=== PATIENT | male | born 1990 | race Caucasian/White ===

== ENCOUNTER 2017-01-14 16:06 | Emergency (ER) | payer OTHER ==
[~2017-01-14] VITALS: Ht 177.8 cm; Wt 75.0 kg
[2017-01-14 16:09] VITALS: Ht 177.8 cm; Wt 75.0 kg
[2017-01-14] MEDS ORDERED: ONDANSETRON (ODT) 4 MG TAB ODT STA (17:15)
[2017-01-14] MEDS ORDERED: CEFTRIAXONE 250 MG INJ IM ONE (17:30)
[2017-01-14] MEDS ORDERED: FAMOTIDINE 20 MG TAB PO ONE (17:30)
[2017-01-14] MEDS ORDERED: LIDOCAINE/MYLANTA 40 ML BTL PO ONE (17:30)
[2017-01-14] MEDS ORDERED: AZITHROMYCIN 250 MG TAB PO ONE (17:30)
[2017-01-14 17:58] LABS: ADD UMIC YES; URINE BILIRUBIN (Dip) 1+ (NEGATIVE); URINE BLOOD (Dip) NEGATIVE (NEGATIVE); URINE COLOR YELLOW (YELLOW); URINE GLUCOSE (Dip) NEGATIVE (NEGATIVE); URINE KETONES (Dip) 40 (NEGATIVE); URINE LEUKOCYTE ESTERASE (Dip) 1+ (NEGATIVE); URINE NITRITE (Dip) NEGATIVE (NEGATIVE); URINE TOTAL PROTEIN (Dip) TRACE (NEGATIVE); URINE UROBILINOGEN (Dip) 1.0 E.U./dL (0.1-1.0)
[2017-01-14 18:21] LABS: ICTOTEST NEGATIVE (NEGATIVE)
[2017-01-14 18:22] LABS: URINE RBCS NONE SEEN /HPF (0)
[2017-01-14] MEDS ORDERED: FAMO-18 PO (18:22)
[2017-01-14] MEDS ORDERED: CIPR500T4 PO (18:22)
[2017-01-14 18:23] LABS: MUCUS,URINE FEW
--- NOTE | 2017-01-14 18:43 | ERD ---
ER Documentation Chief Complaint Date/Time DATE: 01/14/17 TIME: 18:39 Chief Complaint AP X 4 DAYS HPI This is a 26-year-old male that presents to the ER with epigastric pain since Thursday. Patient states that pain is burning in quality it is nonradiating. He has not tried anything for the pain. He denies any vomiting or diarrhea. He denies any fevers or chills. Patient states that he also has symptoms of an STD complaining of penile discharge that is yellow in color. He denies any urinary frequency or dysuria. Patient did have unprotected sex a few days ago. Patient denies any testicular pain redness or swelling. He denies any chest pain or shortness of breath. ROS 12 point review of systems was done, all negative except per HPI. Medications Home Meds Active Scripts Famotidine* (Pepcid*) 20 Mg Tablet, 20 MG PO BID for 14 Days, TAB Prov:AMY ABREU C 01/14/17 Ciprofloxacin Hcl* (Ciprofloxacin Hcl*) 500 Mg Tablet, 500 MG PO BID for 10 Days , TAB Prov:AMY ABREU 01/14/17 Physical Exam Vitals Vital Signs Date Time Temp Pulse Resp B/P Pulse Ox O2 Delivery O2 Flow Rate FiO2 01/14/17 16:09 97.8 102 20 132/79 99 Physical Exam GENERAL: The patient is well developed and appropriate for usual state of health , in no apparent distress. HEENT: Atraumatic. CHEST: Clear to auscultation bilaterally. There are no rales, wheezes or rhonchi. HEART: Regular rate and rhythm. No murmurs, clicks, rubs or gallops. ABDOMEN: Soft, nontender and nondistended. Good bowel sounds. No rebound or guarding. No gross peritonitis. No gross organomegaly or masses. No Arriaza sign or McBurney point tenderness. BACK: No midline or flank tenderness. : yellow penile discharge SKIN: The skin is warm and dry. Results 24 hrs Laboratory Tests Test 01/14/17 17:12 Urine Color YELLOW Urine Clarity CLEAR Urine pH 6.0 Urine Specific [place] 1.025 Urine Ketones 40 Urine Nitrite NEGATIVE Urine Bilirubin 1+ Urine Ictotest NEGATIVE Urine Urobilinogen 1.0 E.U./dL Urine Leukocyte Esterase 1+ Urine Microscopic RBC NONE SEEN/HPF Urine Microscopic WBC 2-5/HPF Urine Calcium Oxalate Crystals FEW Urine Mucus FEW Urine Hemoglobin NEGATIVE Urine Glucose NEGATIVE% Urine Total Protein TRACE Current Medications Medications (Trade) Dose Ordered Sig/Karlee Route PRN Reason Start Time Stop Time Status Last Admin Dose Admin Miscellaneous Medication (Gi Cocktail (2)) 40 ml ONCE ONCE PO 01/14/17 17:30 01/14/17 17:31 DC 01/14/17 17:42 Famotidine (Pepcid) 20 mg ONCE ONCE PO 01/14/17 17:30 01/14/17 17:31 DC 01/14/17 17:42 Ondansetron HCl (Zofran Odt) 4 mg ONCE STAT ODT 01/14/17 17:15 01/14/17 17:18 DC 01/14/17 17:42 Ceftriaxone Sodium (Rocephin) 250 mg ONCE ONCE IM 01/14/17 17:30 01/14/17 17:31 DC 01/14/17 17:42 Azithromycin (Zithromax) 1,000 mg ONCE ONCE PO 01/14/17 17:30 01/14/17 17:31 DC 01/14/17 17:42 Procedures/MDM Differential Diagnosis: GERD, gastritis, peptic ulcer disease, pancreatitis, cholecystitis, choledocholithiasis, biliary colic, cholangitis, [id number] , ACS/NC, Pnuemonia , diaphragmatic hernia. This is a 26-year-old male presents to the ER with multiple complaints. Patient has epigastric pain, likely GERD. He did not have any right upper quadrant tenderness to suggest gallbladder disease. Patient is afebrile and well-appearing I do not believe that labs or imaging is necessary at this time. Patient's pain is completely controlled in the ER with a GI cocktail, Zofran and awaiting. He was treated for chlamydia and gonorrhea with Rocephin and azithromycin, he did not have any complications. His urine was examined and he did have a urinary tract infection. He will be sent home with [facility]. Suspicion for pyelonephritis is low, patient does not have any flank tenderness and is afebrile. Patient needs to follow-up with his primary care doctor within 1-2 days return to ER sooner if symptoms worsen. My medical decision making shared with the patient he understands and agrees with plan. Departure Diagnosis: Primary Impression: UTI (urinary tract infection) Urinary tract infection type: acute cystitis Hematuria presence: without hematuria Qualified Code: N30.00 - Acute cystitis without hematuria Additional Impression: Epigastric pain Condition: Stable Patient Instructions: Understanding Urinary Tract Infections (UTIs), Epigastric Pain (Uncertain Cause) Additional Instructions: Call your primary care doctor TOMORROW for an appointment during the next 1-2 days.See the doctor sooner or return here if your condition worsens before your appointment time. AMY ABREU Jan 14, 2017 18:43
== END 2017-01-14 18:56 | disposition home or self-care (01) ==
LOC: FTE 16:06
DX: N39.0 Urinary tract infection, site not specified (principal)
CPT/HCPCS: 81001; 87591; J0696; Z7610; 96372

== ENCOUNTER 2017-02-12 21:31 | Emergency (ER) | payer OTHER ==
[~2017-02-12] VITALS: Ht 177.8 cm; Wt 69.5 kg
[~2017-02-12 21:31] MED LIST: CIPR500T4 PO; FAMO-96 PO
[2017-02-12 21:35] VITALS: Ht 177.8 cm; Wt 69.5 kg
[2017-02-12] MEDS ORDERED: POLY17PO6 PO (21:57)
[2017-02-12] MEDS ORDERED: DOCU-144 PO (21:57)
[2017-02-12] MEDS ORDERED: HYDR25SU23 PR (21:57)
--- NOTE | 2017-02-12 23:11 | ERD ---
ER Documentation Chief Complaint Date/Time DATE: 02/12/17 TIME: 23:07 Chief Complaint rectal bleeding x 5 days HPI This is a 26-year-old male presenting to the emergency department complaining of rectal bleeding for the past 5 days. Patient states that he has been straining and having difficulty with bowel movements the past couple days. Patient stated the blood is when he wipes. He denies any abdominal pain. Denies taking any medications for this. Denies nausea, vomiting, diarrhea, fevers ROS All systems reviewed and are negative except as per history of present illness. Medications Home Meds Active Scripts Polyethylene Glycol* (Miralax*) 17 Gm Powd.pack, 17 GM PO DAILY, #7 Prov:SALIMA LYNN PA-C 02/12/17 Docusate Sodium* (Colace*) 100 Mg Capsule, 100 MG PO TID, #30 CAP Prov:SALIMA LYNN PA-C 02/12/17 Hydrocortisone Acetate (Anusol-Hc) 25 Mg Supp.rect, 1 SUPP MS BID Y for HEMORROID PAIN/ITCHING, #20 SUPP.RECT Prov:SALIMA LYNN PA-C 02/12/17 Famotidine* (Pepcid*) 20 Mg Tablet, 20 MG PO BID for 14 Days, TAB Prov:AMY ABREU 01/14/17 Ciprofloxacin Hcl* (Ciprofloxacin Hcl*) 500 Mg Tablet, 500 MG PO BID for 10 Days , TAB Prov:AMY ABREU 01/14/17 Allergies Allergies: Coded Allergies: No Known Drug Allergies (Verified Allergy, Unknown, 02/12/17) PMhx/Soc Medical and Surgical Hx: pt denies Medical Hx, pt denies Surgical Hx Hx Alcohol Use: Yes (social) Hx Substance Use: Yes (marijuana) Hx Tobacco Use: Yes Smoking Status: Former smoker Physical Exam Vitals Vital Signs Date Time Temp Pulse Resp B/P Pulse Ox O2 Delivery O2 Flow Rate FiO2 02/12/17 21:35 98.6 98 20 114/69 99 Physical Exam GENERAL: well-developed/well-nourished, in no apparent distress, non-toxic appearing HENT: NC/AT, moist mucous membranes EYES: Conjunctiva normal NECK: Supple, no lymphadenopathy PULM: CTA bilaterally, no rales, rhonchi, or wheezing heard CV: Normal S1S2, RRR, good capillary refill GI: Soft, non-distended, non-tender to palpation Normal bowel sounds, no masses or organomegaly felt on exam No gross peritonitis, no bruits Negative Rovsing, negative Arriaza, negative McBurney's point, Negative CVAT RECTUM: small hemorrhoid BACK: No masses EXT: No clubbing, cyanosis, or edema NEURO: Alert and Orientated SKIN: Intact, normal turgor PSYCH: Normal mood and mentation Procedures/MDM This is a 26-year-old male presenting to the emergency department with constipation and rectal bleeding for the past 5 days, this is likely due to a hemorrhoid versus anal fissure. On examination there was evidence of a small hemorrhoid that was nonthrombosed. Patient appears well, nontoxic. He is hematuria stable to be discharged home to follow-up with the primary care physician for further evaluation management. Prescription for Anusol, Colace and MiraLAX provided. I discussed with him to return to the ER for any worsening symptoms. He understands and agrees with this plan Departure Diagnosis: Primary Impression: Hemorrhoids Additional Impression: Rectal hemorrhage Condition: Stable Patient Instructions: Treating Constipation, Evaluating and Treating Rectal Bleeding, Understanding Rectal Bleeding, Hemorrhoids, Rectal Bleed, Stable Additional Instructions: FOLLOW UP WITH YOUR PRIMARY CARE PHYSICIAN TOMORROW.Return to this facility if you are not improving as expected. Return to this facility if you are not improving as expected. Take all medicines as directed. SALIMA LYNN PA-C Feb 12, 2017 23:11
== END 2017-02-12 22:35 | disposition home or self-care (01) ==
LOC: FTE 21:31
DX: K64.8 Other hemorrhoids (principal)
CPT/HCPCS: 99284

== ENCOUNTER 2017-02-26 21:16 | Emergency (ER) | payer OTHER ==
[~2017-02-26] VITALS: Ht 177.8 cm; Wt 68.5 kg
[~2017-02-26 21:16] MED LIST changes: +DOCU-144 PO; +HYDR25SU23 PR; +POLY17PO6 PO
[2017-02-26 21:52] VITALS: Ht 177.8 cm; Wt 68.5 kg
--- NOTE | 2017-02-27 00:24 | ERD ---
ER Documentation Chief Complaint Date/Time DATE: 02/27/17 TIME: 00:18 Chief Complaint states rectal bleed/abdominal pain x 2 weeks, was here before for same HPI This 26-year-old male patient presents to emergency department with complaint of rectal bleeding since March 02. Patient reports that he has been seen in treated in emergency department approximately 2 weeks ago diagnosed with hemorrhoids, patient states he was given a prescription for MiraLAX and "hemorrhoid medicine" which she did not use. Patient states that he had lost the prescription, symptoms improved but now they have returned. Patient report blood noted in stool, blood on toilet paper, intermittently, patient denies shortness of breath dizziness or abdominal pain. Denies any previous history of hemorrhoids, Crohn's disease, or gastritis. Patient denies any anal trauma or sodomy. Patient denies any alteration in activities of daily living ROS All systems reviewed and are negative except as per history of present illness. Medications Home Meds Active Scripts Polyethylene Glycol* (Miralax*) 17 Gm Powd.pack, 17 GM PO DAILY, #7 Prov:SALIMA LYNN PA-C 02/12/17 Docusate Sodium* (Colace*) 100 Mg Capsule, 100 MG PO TID, #30 CAP Prov:SALIMA LYNN PA-C 02/12/17 Hydrocortisone Acetate (Anusol-Hc) 25 Mg Supp.rect, 1 SUPP PA BID Y for HEMORROID PAIN/ITCHING, #20 SUPP.RECT Prov:SALIMA LYNN PA-C 02/12/17 Famotidine* (Pepcid*) 20 Mg Tablet, 20 MG PO BID for 14 Days, TAB Prov:LOIS,AMY C 01/14/17 Ciprofloxacin Hcl* (Ciprofloxacin Hcl*) 500 Mg Tablet, 500 MG PO BID for 10 Days , TAB Prov:LOISAMY MICHAEL C 01/14/17 Allergies Allergies: Coded Allergies: No Known Drug Allergies (Verified Allergy, Unknown, 02/26/17) PMhx/Soc Medical and Surgical Hx: pt denies Surgical Hx History of Surgery: No Anesthesia Reaction: No Hx Respiratory Disorders: No Hx Cardiac Disorders: No Hx Psychiatric Problems: No Hx Miscellaneous Medical Probl: Yes (hemmorhoids, HIV (+)) Hx Alcohol Use: Yes (social) Hx Substance Use: No Hx Tobacco Use: No Smoking Status: Never smoker Physical Exam Vitals Vital Signs Date Time Temp Pulse Resp B/P Pulse Ox O2 Delivery O2 Flow Rate FiO2 02/26/17 21:52 97.5 82 20 168/68 99 Physical Exam Const: Well-appearing, well-nourished, no acute distress Head: Atraumatic Eyes: Normal Conjunctiva PERRLA, EOMI ENT: Normal External Ears, Nose and Mouth. Mucous membranes moist Neck: Resp: Respirations even and unlabored, no respiratory distress Cardio: Abd: Soft, non tender, non distended. No Arriaza point tenderness, no McBurney's point tenderness, no CVA tenderness Rectal: Normal tone, No mass, Positive control Stool: Brown Guaiac: Negative Skin: Back: Ext: Neur: Awake and alert Psych: Normal Mood and Affect Results 24 hrs Laboratory Tests Test 02/26/17 23:19 Stool Occult Blood NEGATIVE Procedures/MDM This 26-year-old male patient presents to emergency department evaluation of rectal bleeding. History of recent diagnosis of hemorrhoids done here in the emergency department treated with MiraLAX and rectal hydrocortisone patient reports he did not start medication symptoms improved. Patient denies constipation or rectal straining, low suspicion for rectal trauma, GI bleed, gastric ulcer, diverticulitis. Stool for occult blood negative. Patient will be discharged home with [facility]. Follow-up with primary care physician for reevaluation. Return to emergency department for bleeding not improving with treatment, pain, nausea, vomiting. I feel the patient is stable for discharge at this time. I have discussed results, examination findings, the treatment plan with the patient and family present prior to discharge. Indications for emergent reevaluation, side effects of medication were also discussed. All questions were answered. Patient verbalizes understanding and agrees with plan of care. Departure Diagnosis: Primary Impression: Rectal bleeding Condition: Good Patient Instructions: Understanding Rectal Bleeding Additional Instructions: Thank you for for coming to [facility] for your care today. Please ask your nurse or provider if you have questions about your care today and do not leave until all your questions have been answered. Please use any medications given as directed and follow-up with your doctor (or the doctor you were referred to) in the next 2-3 days. If you do not have a primary care doctor you may follow up at the [facility] (listed below). You may also use motrin and tylenol as needed for fever and/or pain unless instructed otherwise by your provider or nurse. Indications for more urgent follow-up have been discussed, but you may return to the Emergency Department at ANY time for any worrisome or worsening symptoms. If you have abdominal pain, please know that no test or exam you received is perfect and you should follow up within 8 hours for continued pain. If you had any imaging studies today, such as an X-Ray or CT Scan, these studies will be reviewed later by a radiologist. You will be called if there are important findings that were not identified today, so make sure the contact information you provided at registration is correct. If you received any narcotic pain control medicine today, such as Vicodin, Morphine or Dilaudid, your coordination and judgment may be affected for a number of hours. Please do not drive or operate heavy machinery, and you may want someone to assist you at home. If you were given a prescription for narcotic medication, be aware that it is very addictive- use sparingly and only if necessary. HARRISON LLAMAS Feb 27, 2017 00:24
[2017-02-27] MEDS ORDERED: POLY17PO6 PO (00:28)
[2017-02-27] MEDS ORDERED: HYDR25SU23 PR (00:29)
[2017-02-27 00:38] VITALS: BP 150/63; PULSE 87; RESP 20; TEMP 97.5
== END 2017-02-27 00:41 | disposition home or self-care (01) ==
LOC: FTE 21:16
DX: K62.5 Hemorrhage of anus and rectum (principal)
CPT/HCPCS: 82270; 99284